=== PATIENT | male | born 2000 | race Caucasian/White ===

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

== ENCOUNTER 2022-11-11 11:43 | Emergency (ER) | payer MEDICAID ==
[2022-11-11 12:19] LABS: BASOPHILS % (AUTO) 0.6 %; EOSINOPHILS # (AUTO) 0.1 10^3/uL (0.0-0.7); HCT - HEMATOCRIT 49.9 % (42.0-52.0); HGB - HEMOGLOBIN 16.9 g/dL (14.0-18.0); LYMPHOCYTES # (AUTO) 1.9 10^3/uL (1.5-3.5); LYMPHOCYTES % (AUTO) 26.8 %; MEAN CORPUSCULAR HEMOGLOBIN 29.8 pg (27.0-31.0); MEAN CORPUSCULAR HGB CONC 33.9 g/dL (32.0-36.0); MEAN CORPUSCULAR VOLUME 87.9 fL (80.0-94.0); MONOCYTES # (AUTO) 0.6 10^3/uL (0.0-1.0); MONOCYTES % (AUTO) 8.4 %; NEUTROPHILS # (AUTO) 4.5 10^3/uL (1.5-6.6); NEUTROPHILS % (AUTO) 61.9 %; PLT - PLATELET COUNT 230 10^3/uL (130-450); RED BLOOD COUNT 5.68 10^6/uL (4.70-6.10); WHITE BLOOD COUNT 7.2 x10^3/uL (4.8-10.8)
[2022-11-11 12:34] LABS: ALBUMIN 4.4 g/dL (3.2-5.5); ALBUMIN/GLOBULIN RATIO 1.3 (1.0-2.2); ALKALINE PHOSPHATASE 64 IU/L (42-121); ALT ALANINE AMINOTRANSFERASE 27 IU/L (10-60); AST ASPARTATE AMINOTRANSFERASE 19 IU/L (10-42); BILIRUBIN,TOTAL 1.1 mg/dL (0.2-1.0); BUN - BLOOD UREA NITROGEN 11 mg/dL (6-20); CALCIUM 9.5 mg/dL (8.5-10.3); CARBON DIOXIDE - CO2 24 mmol/L (21-32); CHLORIDE 104 mmol/L (101-111); CREATININE 0.9 mg/dL (0.6-1.2); GFR - MDRD 105 (>89); GLUCOSE 112 mg/dL (70-100); LIPASE 27 U/L (22-51); SODIUM 135 mmol/L (135-145); TOTAL PROTEIN 7.9 g/dL (6.7-8.2)
[2022-11-11 12:51] LABS: THYROID STIMULATING HORMONE 1.68 uIU/mL (0.34-5.60)
[2022-11-11 12:55] LABS: MUDS CUTOFF CONCENTRATIONS CUTOFF CONC BELOW:
[2022-11-11 13:05] LABS: ACETAMINOPHEN 0.3 ug/mL; ETOH - ETHANOL < 10.0 mg/dL
[2022-11-11 13:12] LABS: BILIRUBIN,URINE NEGATIVE (NEGATIVE); GLUCOSE, URINE (UA) NEGATIVE (NEGATIVE); KETONES,URINE (UA) NEGATIVE (NEGATIVE); LEUKOCYTE ESTERASE, URINE NEGATIVE (NEGATIVE); NITRITE,URINE NEGATIVE (NEGATIVE); OCCULT BLOOD,URINE NEGATIVE (NEGATIVE); PH,URINE 6.5 PH (5.0-7.5); PROTEIN,URINE NEGATIVE (NEGATIVE); UROBILINOGEN,URINE 0.2 (NORMAL) E.U./dL (NORMAL)
[2022-11-11] MEDS ORDERED: AMOX/CLAV 875 MG/125 MG TABLET PO STA (13:15)
[2022-11-11 13:18] LABS: SALICYLATE < 1.5 mg/dL
--- NOTE | 2022-11-11 13:18 | ED Physician Documentation ---
History of Present Illness - Stated complaint Stated Complaint: ORAL ABSCESS,MHE - Chief complaint Chief Complaint: MHE - Additonal information Additional information: 22-year-old male presents to the emergency department with his mom for mental health evaluation as well as dental pain. Patient reports that he has a longstanding history of anxiety and depression. Stopped taking his meds more than a year ago. He reports he has not left his house in more than a year. States he feels he that people may be making fun of him which is why he chooses to wear a mask. In general he does not have a chore VH but when he smokes cannabis he will sometimes hear people talking to him that he knows are not there. He is quite depressed and does not easily contract for safety. States he does have a crossbow that he could use to kill himself if he wanted to. Patient is also having bilateral lower molar pain at the site of significant tooth decay. Scheduled to see a dentist December 14 but states he will not see the dentist until his anxiety and depression is improved. Patient was hospitalized when he was 10 at a [facility] near [place]. Review of Systems Constitutional: reports: Reviewed and negative Throat: reports: Dental pain / toothache GI: reports: Reviewed and negative : reports: Reviewed and negative Skin: reports: Reviewed and negative Neurologic: reports: Reviewed and negative Psychiatric: reports: Depressed, Suicidal, Hallucinations, Anxiety, Insomnia. denies: Homicidal Endocrine: reports: Reviewed and negative PD PAST MEDICAL HISTORY - Past Surgical History Past Surgical History: Yes - Present Medications Home Medications: Ambulatory Orders Medication Instructions Recorded Confirmed Amox/Clav 875/125 [Augmentin] 1 each PO Q12H #20 tablet 11/11/22 - Allergies Allergies/Adverse Reactions: Allergies Allergy/AdvReac Type Severity Reaction Status Date / Time citric acid Allergy Hives Verified 11/11/22 12:03 lactose Allergy Cramps Verified 11/11/22 12:03 - Social History Does the pt smoke?: Yes Smoking Status: Current every day smoker Does the pt drink ETOH?: No Does the pt have substance abuse?: No - Immunizations Immunizations are current?: Yes PD ED PE NORMAL - General General: Alert and oriented X 3, Well developed/nourished. No: No acute distress (Flat depressed affect. Crying.) - HEENT HEENT: Atraumatic, Other (Bilateral lower molar significantly decayed with out surrounding erythema or drainage. No trismus. Grossly hypertrophic tonsils bilaterally without exudate. Uvula is midline. 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 Eye Opening: Spontaneous Motor: Obeys Commands Verbal: Oriented GCS Score: 15 Results - Vitals Vitals: Vital Signs - 24 hr 11/11/22 11:54 Temperature 36.5 C Heart Rate 85 Respiratory 16 Rate Blood Pressure 141/100 H O2 Saturation 98 Oxygen O2 Source Room air - Labs Labs: Laboratory Tests 11/11/22 11/11/22 11/11/22 12:13 12:13 12:45 WBC 7.2 RBC 5.68 Hgb 16.9 Hct 49.9 MCV 87.9 MCH 29.8 MCHC 33.9 RDW 12.0 Plt Count 230 MPV 9.0 Neut # (Auto) 4.5 Lymph # (Auto) 1.9 Frio # (Auto) 0.6 Eos # (Auto) 0.1 Baso # (Auto) 0.0 Absolute Nucleated RBC 0.00 Nucleated RBC % 0.0 Sodium 135 Potassium 4.0 Chloride 104 Carbon Dioxide 24 Anion Gap 7.0 BUN 11 Creatinine 0.9 Estimated GFR (MDRD) 105 Glucose 112 H Calcium 9.5 Total Bilirubin 1.1 H AST 19 ALT 27 Alkaline Phosphatase 64 Total Protein 7.9 Albumin 4.4 Globulin 3.5 Albumin/Globulin Ratio 1.3 Lipase 27 TSH 1.68 Urine Color LIGHT YELLOW Urine Clarity CLEAR Urine pH 6.5 Ur Specific [place] <=1.005 Urine Protein NEGATIVE Urine Glucose (UA) NEGATIVE Urine Ketones NEGATIVE Urine Occult Blood NEGATIVE Urine Nitrite NEGATIVE Urine Bilirubin NEGATIVE Urine Urobilinogen 0.2 (NORMAL) Ur Leukocyte Esterase NEGATIVE Ur Microscopic Review NOT INDICATED Urine Culture Comments NOT INDICATED Salicylates < 1.5 Urine Opiates Screen NEGATIVE Ur Oxycodone Screen NEGATIVE Urine Methadone Screen NEGATIVE Ur Propoxyphene Screen NEGATIVE Acetaminophen 0.3 Ur Barbiturates Screen NEGATIVE Ur Tricyclics Screen NEGATIVE Ur Phencyclidine Scrn NEGATIVE Ur Amphetamine Screen NEGATIVE U Methamphetamines Scrn NEGATIVE U Benzodiazepines Scrn NEGATIVE Urine Cocaine Screen NEGATIVE U Cannabinoids Screen POSITIVE H Ethyl Alcohol < 10.0 SARS-CoV-2 (PCR) 11/11/22 12:50 WBC RBC Hgb Hct MCV MCH MCHC RDW Plt Count MPV Neut # (Auto) Lymph # (Auto) Frio # (Auto) Eos # (Auto) Baso # (Auto) Absolute Nucleated RBC Nucleated RBC % Sodium Potassium Chloride Carbon Dioxide Anion Gap BUN Creatinine Estimated GFR (MDRD) Glucose Calcium Total Bilirubin AST ALT Alkaline Phosphatase Total Protein Albumin Globulin Albumin/Globulin Ratio Lipase TSH Urine Color Urine Clarity Urine pH Ur Specific [place] Urine Protein Urine Glucose (UA) Urine Ketones Urine Occult Blood Urine Nitrite Urine Bilirubin Urine Urobilinogen Ur Leukocyte Esterase Ur Microscopic Review Urine Culture Comments Salicylates Urine Opiates Screen Ur Oxycodone Screen Urine Methadone Screen Ur Propoxyphene Screen Acetaminophen Ur Barbiturates Screen Ur Tricyclics Screen Ur Phencyclidine Scrn Ur Amphetamine Screen U Methamphetamines Scrn U Benzodiazepines Scrn Urine Cocaine Screen U Cannabinoids Screen Ethyl Alcohol SARS-CoV-2 (PCR) NOT DETECTED PD Medical Decision Making - ED course Complexity details: reviewed results, re-evaluated patient, d/w patient, d/w family ED course: 22-year-old male who has a longstanding history of anxiety and depression presents to the emergency department seeking a mental health evaluation. He reports that he has not left his house for nearly a year and has thoughts of suicide in which he would use a crossbow. He has not been medicated for anxiety or depression in quite some time. He is requesting voluntary psychiatric stabilization for his depression. He has been seen by social work and they agree that he would benefit from inpatient treatment and they are currently working on placement. I did obtain the usual mental health screening labs and per my interpretation no acute worrisome findings are noted. A second reason for today's ED visit is some chronic infected dental caries in his lower bilateral molars. Patient is scheduled to see a dentist on December 14. He due to the pain without obvious abscess he will be started on Augmentin. 1644: Patient has been accepted to [facility] for further evaluation and management of his anxiety, depression and suicidal ideation. Accepting physician is STEFANIA Raman. Appropriate [email or web address] paperwork has been completed. Patient and mom at bedside are aware of plan to transfer. Departure - Departure Disposition: 65 Psych Hosp/Unit DC/Xfer Clinical Impression: Suicidal ideation, Infected dental caries Depression Qualifiers: Depression Type: major depressive disorder Major depression recurrence: unspecified whether recurrent Active/Remission status: currently active Major depression episode severity: severe Psychotic features: without psychotic features Qualified Code(s): F32.2 - Major depressive disorder, single episode, severe without psychotic features Condition: Stable Prescriptions: Amox/Clav 875/125 [Augmentin] 1 each PO Q12H #20 tablet Forms: PCP List
[2022-11-11 13:19] LABS: CLARITY,URINE CLEAR (CLEAR)
[2022-11-11 13:24] LABS: AMPHETAMINE SCREEN,URINE NEGATIVE (NEGATIVE); BARBITURATE SCREEN,UR NEGATIVE (NEGATIVE); BENZODIAZEPINES SCREEN, URINE NEGATIVE (NEGATIVE); COCAINE SCREEN URINE NEGATIVE (NEGATIVE); METHADONE SCREEN, URINE NEGATIVE (NEGATIVE); METHAMPHETAMINES SCREEN, URINE NEGATIVE (NEGATIVE); OPIATE SCREEN, URINE NEGATIVE (NEGATIVE); OXYCODONE SCREEN, URINE NEGATIVE (NEGATIVE); PROPOXYPHENE SCREEN, URINE NEGATIVE (NEGATIVE); THC CANNABINOID SCREEN, URINE POSITIVE (NEGATIVE); TRICYCLIC ANTIDEPRESSANT,URINE NEGATIVE (NEGATIVE)
[2022-11-11] MEDS ORDERED: NICOTINE 14 MG PATCH TOP STA (16:28)
[2022-11-11 19:47] VITALS: BP 145/86; O2SAT 96
== END 2022-11-11 19:45 ==
LOC: ED 11:43
DX: R45.851 Suicidal ideations (principal); F32.2 Major depressive disorder, single episode, severe without psychotic features; K02.9 Dental caries, unspecified; F17.200 Nicotine dependence, unspecified, uncomplicated; Z20.822 Contact with and (suspected) exposure to COVID-19
CPT/HCPCS: 36415; 80053; 80306; 80307; 80320; 80329; 81003; 83690; 84443; 85025; 87635; 99284; 99285; A9270; 81001; 87086